=== PATIENT | female | born 1950 | race African-American/Black ===

== ENCOUNTER → 2017-01-04 | Outpatient (CLI) | payer OTHER ==
[~2017-01-04] MED LIST: ACETAMINOPHEN PO; ELIQUIS5 MG PO; FERROUS GLUCON324 MG PO; FOSAMAX PO; K-DUR20 ME2 DOB; LASIX PO; LIPITOR20 MG PO; LOPRESSOR PO; METFORMIN HCL500 M1 PO; NORVASC PO; OMEPRAZOLE20 M2 PO; PROAIR HFA8.5 GM INH; SV CALCIUM-MAG1 EACH PO
--- NOTE | ~2017-01-04 | MY29 ---
[facility] A Service of [facility] RADIOLOGY TEXT RESULTS PATIENT: ANN CALDERON LOCATION: [facility] : 50 UNIT #: [id number] AGE: [address]: Annalee Somers MD SEX: F ORDER DR: [id number] [facility]. [place], [place] [address] [id number] O MR#: [id number] Acc #: [id number] NAME: ANN CALDERON : 1950 SEX: F STUDY DATE/TIME: 01/04/2017 11:05 UNIT: [facility] ROOM: STUDY DESCRIPTION: MY OLVIN SCREENING W/ CAD BILAT Attending Physician: Annalee Somers M.D. Ordering Physician: Annalee Somers M.D. Primary Care Physician: Annalee Somers M.D. MEDICAL IMAGING REPORT This report is preliminary unless electronic signature is present EXAM Bilateral digital screening mammogram with CAD. HISTORY Routine screening. No current complaints. No family history of breast cancer. COMPARISON 12/29/2015, 10/21/2014. TECHNIQUE MLO and CC digital views of each breast were obtained in 2D technique and reviewed with an FDA-approved CAD device. FINDINGS The breasts are almost entirely fatty replaced. There are no masses or abnormal calcifications. There has been no change. IMPRESSION No change. No evidence of malignancy. BIRADS category 1N. Patients over the age of 40 are entered into a reminder system with target due date for the next mammogram. A result letter will also be sent to the patient. BIRADS: 1 Negative. Dictated by... Richi Liang M.D. [facility] A Service of [facility] RADIOLOGY TEXT RESULTS PATIENT: ANN CALDERON LOCATION: [facility] : 50 UNIT #: [id number] AGE: [address]: Annalee Somers MD SEX: F ORDER DR: THIS IS AN ELECTRONICALLY VERIFIED REPORT Richi Liang M.D. at 01/06/2017 11:26 AM [place] TD: 01/04/2017 15:17 JOB #: [id number] MEDICAL IMAGING REPORT Page 1 of 1 COPY
== END | disposition home or self-care (01) ==
LOC: CWCC 10:36
DX: Z12.31 Encounter for screening mammogram for malignant neoplasm of breast (principal)
CPT/HCPCS: G0202